=== PATIENT | male | born 1985 | race American Indian/Alaskan Native ===

== ENCOUNTER 2018-09-23 19:23 | Emergency (ER) | payer OTHER ==
--- NOTE | 2018-09-23 19:49 | Emergency Department Report ---
Blank Doc - Documentation Documentation: This is a 33-year-old male that presents with 15 feet roof fall. This initial assessment/diagnostic orders/clinical plan/treatment(s) is/are subject to change based on patient's health status, clinical progression and re- assessment by fellow clinical providers in the ED. Further treatment and workup at subsequent clinical providers discretion. Patient/guardians urged not to elope from the ED as their condition may be serious if not clinically assessed and managed. Initial orders include: 1- Patient sent to [facility] for further evaluation and treatment 2- initiated code trauma 3- labs 4- cervical collar
[2018-09-23] MEDS ORDERED: SUBLIMAZE IV ONE (20:24)
--- NOTE | 2018-09-23 20:27 | Emergency Department Report ---
ED Trauma HPI - General Chief Complaint: Fall Stated Complaint: FELL OFF ROOF Time Seen by Provider: 09/23/18 19:48 Source: patient Exam Limitations: no limitations - History of Present Illness Initial Comments: This is a 33-year-old gentleman. The patient is not known to this provider previously. Patient reports no chronic medical conditions. The patient presents to the [facility] room after mechanical fall. Patient reports that he fell approximately 2 stories off of a roof. He believes he hit his lower back, and landed on his head. He believes that he lost consciousness. He reported that after the fall, he had bilateral numbness in his lower extremities. He thinks this is now resolved. He also describes a strange sensation on his bilateral anterior shoulders, and upper extremities. This is intermittent. He currently denies weakness at this time. The patient has a headache. He does not have neck pain. He has diffuse midline back pain. The pain is sharp. It increases with palpation. It decreases with rest. He denies bladder or bowel retention, incontinence. He denies saddle anesthesia. Occurred: just prior to arrival Severity: moderate Pain Location: head, back Modifying Factors: improves with: other Loss of Consciousness: brief (seconds) Allergies/Adverse Reactions: Allergies No Known Allergies Allergy (Unverified 09/23/18 19:38) ED Review of Systems ROS: Stated complaint: FELL OFF ROOF Other details as noted in HPI Constitutional: denies: fever Eyes: denies: eye discharge ENT: denies: epistaxis Respiratory: denies: cough Cardiovascular: syncope. denies: chest pain Gastrointestinal: denies: abdominal pain, nausea Genitourinary: denies: as per HPI, dysuria Musculoskeletal: back pain Skin: denies: lesions Neurological: paresthesias Psychiatric: anxiety ED Past Medical Hx - Social History Smoking Status: Current Every Day Smoker Substance Use Type: None ED Physical Exam - General Limitations: No Limitations General appearance: alert, in no apparent distress - Head Head exam: Present: atraumatic, normocephalic - Eye Eye exam: Present: normal appearance, EOMI, other (visual acuity intact to fing er counting, color perception, reading at a close distance). Absent: nystagmus - ENT ENT exam: Present: normal exam, normal orophraynx, mucous membranes moist, normal external ear exam - Neck Neck exam: Present: normal inspection, other (patient placed in a cervical collar immediately during his primary survey) - Respiratory Respiratory exam: Present: normal lung sounds bilaterally. Absent: respiratory distress - Cardiovascular Cardiovascular Exam: Present: regular rate, normal rhythm, normal heart sounds. Absent: bradycardia, tachycardia, irregular rhythm, systolic murmur, diastolic murmur, rubs, gallop - GI/Abdominal GI/Abdominal exam: Present: soft. Absent: distended, tenderness, guarding, rebound, rigid, pulsatile mass - Rectal Rectal exam: Present: normal inspection, normal rectal tone - Extremities Exam Extremities exam: Present: normal inspection, full ROM, other (2+ pulses noted in the bilateral upper, lower extremities. Compartments soft. No long bony tenderness. The pelvis is stable.). Absent: pedal edema, joint swelling, calf tenderness - Back Exam Back exam: Present: normal inspection, full ROM, paraspinal tenderness, vertebral tenderness. Absent: tenderness, CVA tenderness (R), CVA tenderness (L) - Neurological Exam Neurological exam: Present: alert, oriented X3, reflexes normal (downgoing plantar reflexes bilaterally.), other (Extraocular movements intact. Tongue midline. No facial droop. Facial sensation intact to light touch in the V1, V2, V3 distribution bilaterally. 5 and 5 strength in 4 extremities.. Sensation is intact to light touch in 4 extremities.). Absent: motor sensory deficit (the re is 5 out of 5 strength bilateral upper, lower extremities. Sensation is intact to light touch bilateral upper, lower extremities, pinch upper, lower extremities bilaterally, and proprioception is intact in the bilateral upper, lower extremities) - Psychiatric Psychiatric exam: Present: normal affect, normal mood - Skin Skin exam: Present: warm, dry, intact, normal color. Absent: rash ED Course Vital Signs 09/23/18 09/23/18 09/23/18 19:42 19:48 20:00 Temperature 98.5 F 98.5 F Pulse Rate 87 87 83 Respiratory 18 18 17 Rate Blood Pressure 138/85 Blood Pressure 138/85 [Right] O2 Sat by Pulse 99 100 98 Oximetry 09/23/18 09/23/18 09/23/18 20:15 20:31 20:45 Temperature Pulse Rate 95 H 84 77 Respiratory 15 16 11 L Rate Blood Pressure 131/83 131/83 131/83 Blood Pressure [Right] O2 Sat by Pulse 98 99 99 Oximetry 09/23/18 21:01 Temperature Pulse Rate 74 Respiratory 13 Rate Blood Pressure 131/83 Blood Pressure [Right] O2 Sat by Pulse 99 Oximetry ED Medical Decision Making - Lab Data Result diagrams: 09/23/18 20:30 09/23/18 20:30 Vital Signs 09/23/18 09/23/18 09/23/18 19:42 19:48 20:00 Temperature 98.5 F 98.5 F Pulse Rate 87 87 83 Respiratory 18 18 17 Rate Blood Pressure 138/85 Blood Pressure 138/85 [Right] O2 Sat by Pulse 99 100 98 Oximetry 09/23/18 09/23/18 09/23/18 20:15 20:31 20:45 Temperature Pulse Rate 95 H 84 77 Respiratory 15 16 11 L Rate Blood Pressure 131/83 131/83 131/83 Blood Pressure [Right] O2 Sat by Pulse 98 99 99 Oximetry 09/23/18 21:01 Temperature Pulse Rate 74 Respiratory 13 Rate Blood Pressure 131/83 Blood Pressure [Right] O2 Sat by Pulse 99 Oximetry Lab Results 09/23/18 09/23/18 09/23/18 Range/Units 20:30 20:30 20:30 WBC 8.2 (4.5-11.0) K/mm3 RBC 4.60 (3.65-5.03) M/mm3 Hgb 15.1 (11.8-15.2) gm/dl Hct 43.8 (35.5-45.6) % MCV 95 H (84-94) fl MCH 33 H (28-32) pg MCHC 34 (32-34) % RDW 12.9 L (13.2-15.2) % Plt Count 261 (140-440) K/mm3 Lymph % (Auto) 35.7 H (13.4-35.0) % Potter % (Auto) 11.2 H (0.0-7.3) % Eos % (Auto) 1.8 (0.0-4.3) % Baso % (Auto) 1.0 (0.0-1.8) % Lymph # 2.9 (1.2-5.4) K/mm3 Potter # 0.9 H (0.0-0.8) K/mm3 Eos # 0.1 (0.0-0.4) K/mm3 Baso # 0.1 (0.0-0.1) K/mm3 Seg Neutrophils % 50.3 (40.0-70.0) % Seg Neutrophils # 4.1 (1.8-7.7) K/mm3 PT 12.9 (12.2-14.9) Sec. INR 0.92 (0.87-1.13) APTT 26.9 (24.2-36.6) Sec. Sodium 139 (137-145) mmol/L Potassium 4.3 (3.6-5.0) mmol/L Chloride 101.9 (98-107) mmol/L Carbon Dioxide 28 (22-30) mmol/L Anion Gap 13 mmol/L BUN 6 L (9-20) mg/dL Creatinine 1.2 (0.8-1.5) mg/dL Estimated GFR > 60 ml/min BUN/Creatinine Ratio 5 % Glucose 105 H (75-100) mg/dL Calcium 9.5 (8.4-10.2) mg/dL Total Bilirubin 0.20 (0.1-1.2) mg/dL Direct Bilirubin < 0.2 (0-0.2) mg/dL Indirect Bilirubin 0.0 mg/dL AST 24 (5-40) units/L ALT 25 (7-56) units/L Alkaline Phosphatase 77 (35-129) units/L Total Creatine Kinase (55-170) units/L Total Protein 7.3 (6.3-8.2) g/dL Albumin 4.1 (3.9-5) g/dL Albumin/Globulin Ratio 1.3 % Plasma/Serum Alcohol (0-0.07) % 09/23/18 09/23/18 Range/Units 20:30 20:30 WBC (4.5-11.0) K/mm3 RBC (3.65-5.03) M/mm3 Hgb (11.8-15.2) gm/dl Hct (35.5-45.6) % MCV (84-94) fl MCH (28-32) pg MCHC (32-34) % RDW (13.2-15.2) % Plt Count (140-440) K/mm3 Lymph % (Auto) (13.4-35.0) % Potter % (Auto) (0.0-7.3) % Eos % (Auto) (0.0-4.3) % Baso % (Auto) (0.0-1.8) % Lymph # (1.2-5.4) K/mm3 Potter # (0.0-0.8) K/mm3 Eos # (0.0-0.4) K/mm3 Baso # (0.0-0.1) K/mm3 Seg Neutrophils % (40.0-70.0) % Seg Neutrophils # (1.8-7.7) K/mm3 PT (12.2-14.9) Sec. INR (0.87-1.13) APTT (24.2-36.6) Sec. Sodium (137-145) mmol/L Potassium (3.6-5.0) mmol/L Chloride (98-107) mmol/L Carbon Dioxide (22-30) mmol/L Anion Gap mmol/L BUN (9-20) mg/dL Creatinine (0.8-1.5) mg/dL Estimated GFR ml/min BUN/Creatinine Ratio % Glucose (75-100) mg/dL Calcium (8.4-10.2) mg/dL Total Bilirubin (0.1-1.2) mg/dL Direct Bilirubin (0-0.2) mg/dL Indirect Bilirubin mg/dL AST (5-40) units/L ALT (7-56) units/L Alkaline Phosphatase (35-129) units/L Total Creatine Kinase 393 H (55-170) units/L Total Protein (6.3-8.2) g/dL Albumin (3.9-5) g/dL Albumin/Globulin Ratio % Plasma/Serum Alcohol < 0.01 (0-0.07) % - Medical Decision Making Differential diagnosis, including not limited to: Spinal cord contusion, spinal fracture, mechanical fall, neuropraxia Assessment and plan: 33-year-old gentleman who is clinically sober at this time, with nonspecific neurologic symptoms, no obvious motor deficits, awake, alert, clinically sober, protecting airway. Immediately upon primary survey, placed in a cervical collar, and spinal precautions. Secondary survey unremarkable, primary survey as noted in physical examination. I recommended transfer to a dedicated trauma center for definitive services not available at this facility, including spine surgeon, trauma surgery, and MRI. Patient initially amenable to transfer, and then refused. The patient's is awake, alert, oriented, clinically sober, and exhibits decision-making capacity. The risks of signing out AGAINST MEDICAL ADVICE were explicitly and extensively discussed with the patient, specifically the risks of disability, paralysis, , permanent loss of quality of life. Patient articulated these risks in his own words, and demonstrates decision- making capacity without obvious distracting injury. The patient signed out AGAINST MEDICAL ADVICE. This conversation is witnessed by nurse SANDRA HUBER The patient was counseled to return to the emergency room right away if and when. Critical care attestation.: If time is entered above; I have spent that time in minutes in the direct care of this critically ill patient, excluding procedure time. ED Disposition Clinical Impression: Fall, Back pain, History of numbness Disposition: [id number] LEFT AGAINST MED ADVICE Is pt being admited?: No Does the pt Need Aspirin: No Condition: Undetermined Referrals: AMY RUIZ MD [Primary Care Provider] - 3-5 Days Forms: AMA Form
[2018-09-23 20:38] LABS: Basophils # (Auto) 0.1 K/mm3 (0.0-0.1); Eosinophils # (Auto) 0.1 K/mm3 (0.0-0.4); Eosinophils % (Auto) 1.8 % (0.0-4.3); Hematocrit 43.8 % (35.5-45.6); Hemoglobin 15.1 gm/dl (11.8-15.2); Lymphocytes # (Auto) 2.9 K/mm3 (1.2-5.4); Lymphocytes % (Auto) 35.7 % (13.4-35.0); Mean Corpuscular HGB Conc 34 % (32-34); Mean Corpuscular Volume 95 fl (84-94); Monocytes # (Auto) 0.9 K/mm3 (0.0-0.8); Monocytes % (Auto) 11.2 % (0.0-7.3); Platelet Count 261 K/mm3 (140-440); Red Cell Distribution Width 12.9 % (13.2-15.2)
[2018-09-23 20:49] LABS: INR 0.92 (0.87-1.13); Partial Thromboplastin Time 26.9 Sec. (24.2-36.6)
[2018-09-23 21:00] LABS: Alanine Aminotransferase 25 units/L (7-56); Albumin 4.1 g/dL (3.9-5); BUN/Creatinine Ratio 5; Blood Urea Nitrogen 6 mg/dL (9-20); Calcium 9.5 mg/dL (8.4-10.2); Hemolysis Index 31
[2018-09-23 21:04] LABS: Bilirubin,Direct < 0.2 mg/dL (0-0.2)
[2018-09-23 21:06] VITALS: BP 131/83
== END 2018-09-23 21:06 | disposition left against medical advice (07) ==
LOC: ED 19:23
DX: M54.5 Low back pain (principal); R20.0 Anesthesia of skin; F17.200 Nicotine dependence, unspecified, uncomplicated; W18.30XA Fall on same level, unspecified, initial encounter; Y93.89 Activity, other specified; Y92.89 Other specified places as the place of occurrence of the external cause; Y99.8 Other external cause status
CPT/HCPCS: 36415; 80048; 80076; 82550; 85025; 85610; 85730; 96374; 99284; G0480; J3010; 80320